=== PATIENT | male | born 1955 | race Caucasian/White ===

== ENCOUNTER → 2022-08-20 11:14 | Outpatient (CLI) | payer MEDICARE, OTHER, SELFPAY ==
--- NOTE | ~2022-08-20 | MR_ITS ---
EXAMINATION: MR shoulder LT wo con DATE: 08/20/2022 12:01 INDICATION: Left shoulder pain and limited range of motion post fall TECHNIQUE: Magnetic resonance imaging (MRI) of the left shoulder was performed without intravenous co ntrast. Sequences included axial PD-weighted FS FSE, coronal oblique PD-weighted FS FSE, coronal obli que T2-weighted FS FSE, sagittal PD-weighted FS FSE, and sagittal T1-weighted SE. COMPARISON: None. FINDINGS: Coracoacromial arch: The acromion undersurface is flat in morphology (type I). The coracoacromial ligament is normal. Mild to moderate acromioclavicular osteoarthritis. Rotator cuff: Moderate supraspinatus and infraspinatus tendinopathy with full-thickness tear involving the entire s upraspinatus and anterior half of the infraspinatus tendon. There is a small amount of residual fraye d tendon material remaining attached to the greater tuberosity footplate which extends approximately 2 cm medially but which is markedly attenuated. The medial tear margin also appears significantly fra yed and attenuated. There is approximately 1 cm separation of the medial and lateral tear margins. Th ere is a severe partial thickness articular sided tear involving the more posterior infraspinatus ten don. There is medial retraction of the supraspinatus muscle belly with mild surrounding edema but wit hout significant fatty atrophy. The tear also extends anteriorly across the rotator cuff interval wit h a full-thickness tear involving the cephalad two thirds of the subscapularis tendon. There are some only a small amount of residual tendon material attached to the lesser tuberosity possibly 1 cm sepa ration of the frayed medial and lateral sides of the tear margin. There is some feathery muscular janice ma along the cephalad subscapularis muscle belly without evident fatty atrophy. The teres minor tendo n is normal. Biceps tendon, glenoid labrum and glenohumeral cartilage: Long head of the biceps tendon is normal. Extensive labral tear which appears to spare only the 8:30- 10:00 position of the posterior labrum. The tear appears to involve the chondro labral junction along the posterior half of the glenoid. Cartilage appears otherwise preserved. Mild partial-thickness car tilage loss with relatively smooth chondral surface along the inferomedial and posterosuperolateral a spects of the humeral head. Glenoid cartilage Fluid: Moderate-sized glenohumeral joint effusion which extends to the full-thickness rotator cuff tear into the subcoracoid and subacromial/subdeltoid bursae. No loose osteochondral bodies. Bones: Normal marrow signal with no edema, fracture or abnormal marrow replacing process. IMPRESSION: 1. Large full-thickness rotator cuff tear involving the cephalad two thirds of the subscapularis, the entire supraspinatus and anterior half of the infraspinatus tendon with additional severe partial th ickness articular sided tear of the more posterior infraspinatus tendon. The appearance on the absenc e of significant fatty atrophy suggests a recent tear likely in the setting of adenopathy and likely chronic partial-thickness articular sided supraspinatus and infraspinatus tears. 2. Mild glenohumeral osteoarthritis with extensive labral tear 3. Mild to moderate acromioclavicular osteoarthritis. Reviewed, dictated and finalized at location A. [employer] LE[employer] IMPRESSION: 1. Large full-thickness rotator cuff tear involving the cephalad two thirds of the subscapularis, the entire supraspinatus and anterior half of the infraspina tus tendon with additional severe partial thickness articular sided tear of the more posterior infraspinatus tendon. The appearance on the absence of signific ant fatty atrophy suggests a recent tear likely in the setting of adenopathy
== END ==
PROVIDERS: PCP Family Medicine; Visit Provider Orthopaedic Surgery
DX: M19.012 Primary osteoarthritis, left shoulder (principal)
CPT/HCPCS: 73221

== ENCOUNTER 2025-08-10 08:08 | Outpatient (CLI) | payer MEDICARE, OTHER, SELFPAY ==
--- NOTE | ~2025-08-10 | MR_ITS ---
EXAMINATION: MR knee LT wo con DATE: 08/10/2025 08:47 INDICATION: Generalized left knee pain TECHNIQUE: Magnetic resonance imaging (MRI) of the left knee was performed without intravenous contrast. Sequences included coronal PD-weighted FSE, coronal PD-weighted FS FSE, sagittal T2-weighted FSE, sagittal PD-weighted FS FSE and axial PD weighted fat saturated FSE. COMPARISON: None. FINDINGS: Medial compartment: There is medial extrusion of the medial meniscal body and posterior fusion of the posterior horn both which appear small which could be related to meniscal tear and secondary degeneration displacement of meniscal tissue or due to prior partial meniscectomy. There is extensive full thickness cartilage loss along portions of the anterior to posterior weightbearing medial femoral condyle and along the medial half and posterior third of the medial tibial plateau. There is subarticular edema-like signal change, sclerosis and some remodeling of the articular cortices. Lateral compartment: Complex tear of the anterior horn, body and posterior horn of the lateral meniscus. Additional full-thickness cartilage loss along the medial aspect of the anterior weightbearing lateral femoral condyle and the juxtaposed lateral tibial plateau including the articular surface of the intercondylar eminence. Additional less severe partial thickness chondral ulceration and chondral fissuring along the remainder of the lateral tibial plateau and weightbearing lateral femoral condyle. Scattered subarticular edema-like signal change and mild subarticular cystlike change at the central lateral tibial plateau. Patellofemoral compartment: Deep chondral fissuring along side small marginal ossified severity at the inferior patella. Partial-thickness chondral ulceration involving greater than 50% the cartilage thickness at the lateral trochlea. Less severe partial thickness chondral ulceration with central subchondral osteophytes at the tr ochlear groove and medial trochlea. Ligaments and tendons: Change of prior anterior cruciate ligament reconstructions utilizing patellar tendon autograft sagittal oriented defect extending along the patellar tendon. Complete failure of the reconstruction graft. Posterior cruciate ligament is normal.. The medial collateral ligament and fibular collateral ligament complex are normal. All distal quadriceps tendinopathy without tear. The visualized medial and lateral hamstring tendons as well as the iliotibial band are normal. Fluid: Large left knee joint effusion with mild synovitis at the margins of the suprapatellar pouch and at the posterior recesses. There are few loose osteochondral bodies in the posterior recess of the joint space. There is also mild synovitis associated with a small to moderate-sized Cantu's cyst which bennie ures 4.7 cm craniocaudally and measuring 4.6 similar craniocaudally and 2.2 x 1.5 cm in transaxial dimensions. Osseous/other: There is mild lateral subluxation of the tibial plateau relative to the femoral condyles. No fracture or pathologic marrow replacing process. IMPRESSION: 1. Complex lateral meniscal tear. 2. Extrusion of the small body and posterior horn of the medial meniscus which could be due to either labral tear with secondary displacement or degeneration of meniscal tissue or sequela prior subtotal meniscectomy. 3. 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 4. Status post anterior cruciate ligament reconstruction utilizing patellar tendon autograft with complete graft failure. 5. Large left knee joint effusion and small to moderate-sized Cantu's cyst. Reviewed, dictated and finalized at location A. F READER IMPRESSION: 1. Complex lateral meniscal tear. 2. Extrusion of the small body and posterior horn of the medial meniscus which could be due to either labral tear with secondary displacement or degeneration of meniscal tissue or sequela prior subtotal meniscectomy. 3. 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 4. Status post anterior cruciate ligament reconstruction utilizing patellar ten don autograft with complete graft failure. 5. Large left knee joint effusion and small to moderate-sized Cantu's cyst.
== END 2025-08-10 08:09 | disposition home or self-care (01) ==
LOC: MICIMG 08:09
PROVIDERS: PCP Internal Medicine; Visit Provider Internal Medicine
DX: S83.272A Complex tear of lateral meniscus, current injury, left knee, initial encounter (principal); X58.XXXA Exposure to other specified factors, initial encounter; M17.12 Unilateral primary osteoarthritis, left knee; M25.462 Effusion, left knee
CPT/HCPCS: 73721